=== PATIENT | female | born 1960 | race Caucasian/White ===

== ENCOUNTER 2018-11-15 21:33 | Emergency (ER) | payer SELFPAY ==
[~2018-11-15] VITALS: Ht 167.6 cm; Wt 81.6 kg
[2018-11-15 21:45] VITALS: BP 150/88
== END 2018-11-15 21:45 | disposition left against medical advice (07) ==
LOC: ER 21:35
DX: Z02.89 Encounter for other administrative examinations (principal); Z53.21 Procedure and treatment not carried out due to patient leaving prior to being seen by health care provider